=== PATIENT | female | born 2000 | race Caucasian/White ===

== ENCOUNTER 2021-05-23 22:27 | Emergency (ER) | payer MEDICAID ==
[~2021-05-23] VITALS: Ht 152.4 cm; Wt 68.2 kg
[2021-05-23 22:34] VITALS: BP 125/84; PULSE 69; TEMP 98.4
== END 2021-05-23 23:00 | disposition home or self-care (01) ==
LOC: COL.ER 22:27
DX: S60.411A Abrasion of left index finger, initial encounter (principal); W26.8XXA Contact with other sharp object(s), not elsewhere classified, initial encounter